=== PATIENT | male | born 1945 | race Caucasian/White ===

== ENCOUNTER 2019-06-27 05:34 | Inpatient (IN) ==
[2019-06-27] MEDS ORDERED: ROPIVACAINE HCL/PF 100 MG, EPINEPHrine 0.2 MG, KETOROLAC TROMETHAMINE 30 MG in NORMAL S... IJ PRN (06:00)
[2019-06-27] MEDS ORDERED: TRANEXAMIC ACID 1,000 MG in NORMAL SALINE 100 ML IV PRN (06:00)
[2019-06-27] MEDS ORDERED: MORPHINE SULFATE 15 MG TABLET.SA PO PRN (06:00)
[2019-06-27] MEDS ORDERED: ceFAZolin SODIUM 1 GM VIAL IV PRN (06:00)
[2019-06-27] MEDS ORDERED: ceFAZolin SODIUM 1 GM VIAL ONE (07:12)
[2019-06-27] MEDS ORDERED: ISOPROPYL ALCOHOL 480 APPL BTL MC ONE (07:12)
--- NOTE | 2019-06-27 07:22 | ANES ---
Anesthesia Pre Procedure Eval Vitals/Labs: Last Vital Signs Temp 36.8 C 06/27/19 06:34 Pulse 73 06/27/19 06:34 Resp 18 06/27/19 06:34 BP 179/88 H 06/27/19 06:34 Pulse Ox 97 06/27/19 06:34 HOME MEDICATIONS budesonide-formoterol HFA 160 mcg-4.5 mcg/actuation aerosol inhaler 2 inh IH BID 05/06/18 [Last Taken Unknown] losartan 100 mg tablet 100 mg PO DAILY 05/06/18 [Last Taken Unknown] tizanidine 4 mg capsule 4 mg PO HS 05/06/18 [Last Taken Unknown] albuterol sulfate 90 mcg/actuation aerosol inhaler 2 inh IH .q 4-6 hours PRN g 04/14/19 [Last Taken Unknown] hydrocodone 5 mg-acetaminophen 325 mg tablet 1 tab PO Q12H PRN #60 tab 06/02/19 [Last Taken Unknown] amLODIPine BESYLATE [Norvasc] 1 tab PO DAILY 06/27/19 [Last Taken Unknown] Allergies/Adverse Reactions: Allergies Allergy/AdvReac Type Severity Reaction Status Date / Time No Known Allergies Allergy Verified 06/27/19 06:55 - Planned Procedure Planned Procedure: Revision Right Total Knee Tibial Component Medication List Reviewed:: Yes Allergies Verified: Yes Medical History (Last Reviewed 06/27/19 @ 07:16 by Lyndon Stahl CRNA) Knee pain, right (Acute) Onset Date: Unknown COPD (chronic obstructive pulmonary disease) Onset Date: Unknown Hypertension Onset Date: Unknown Osteoarthritis of knees, bilateral Onset Date: Unknown Wrist fracture, bilateral Onset Date: Unknown Surgical History (Last Reviewed 06/27/19 @ 07:16 by Lyndon Stahl CRNA) History of arthroplasty of right knee (Chronic) Onset Date: Unknown revision Dr. Fields 10/2017, Андрей approx. 2010 H/O colonoscopy Onset Date: Unknown History of arthroplasty of left knee Onset Date: Unknown approximately. 2001 DR. Vega Status post tonsillectomy Onset Date: Unknown Family History (Last Reviewed 06/27/19 @ 07:16 by Lyndon Stahl CRNA) Mother Medical history unknown Father Medical history unknown - Family Anesthesia History Family History:: no untoward family reactions to anesthesia, no familial bleeding tendencies, no family history of clotting disorders, no family history of premature - Airway/Neck/Teeth Within Normal Limits:: Yes Denture Type: Full upper, Full lower Mallampatti Score: 3 Thyromental (T-M) distance: > 6 cm Mandibulo Hyoid distance: > 3 cm - Respiratory Respiratory History: COPD Respiratory Physical: lungs clear Smoking Status: Former smoker Discussed smoking cessation including day of surgery: No Sleep Apnea currently treated: No Sleep Apnea by current assessment: No Discussed Risks/Treatment of JILLIAN: No - Cardiovascular Tolerate Activity: Fair Heart Sounds: S1 & S2, Regular - Gastrointestinal NPO since: mn - Anesthesia Assessment and Plan ASA Class: PS, III Anesthesia Type Plan: Block - Ultrasound guided adductor canal nerve block for postop analgesia, Spinal
[2019-06-27] MEDS ORDERED: ONDANSETRON HCL/PF 2 MG/ML VIAL ONE (07:24)
[2019-06-27] MEDS ORDERED: fentaNYL CITRATE/PF 50 MCG/ML AMPUL ONE (07:24)
[2019-06-27] MEDS ORDERED: LIDOCAINE HCL 20 ML VIAL ONE (07:24)
[2019-06-27] MEDS ORDERED: PROPOFOL VIAL IV ONE (07:25)
[2019-06-27] MEDS ORDERED: BUPIVACAINE HCL/EPINEPHRINE 50 ML VIAL ONE (07:25)
[2019-06-27] MEDS: RINGER'S SOLUTION,LACTATED 1,000 ML IV PRN ×2 (07:27→08:48)
[2019-06-27] MEDS ORDERED: MAGNESIUM HYDROXIDE 30 ML UDC PO PRN (10:39)
[2019-06-27] MEDS ORDERED: ACETAMINOPHEN 500 MG TABLET PO PRN (10:39)
[2019-06-27] MEDS ORDERED: ZOLPIDEM TARTRATE 5 MG TABLET PO PRN (10:39)
[2019-06-27] MEDS ORDERED: MAG HYDROX/ALUMINUM HYD/SIMETH 30 ML UDC PO PRN (10:39)
[2019-06-27] MEDS ORDERED: diphenhydrAMINE HCL 50 MG/ML VIAL IV PRN (10:39)
[2019-06-27] MEDS ORDERED: ONDANSETRON HCL/PF 2 MG/ML VIAL IV PRN (10:39)
[2019-06-27] MEDS ORDERED: MORPHINE SULFATE 2 MG/ML DISP.SYRIN IV PRN (10:39)
[2019-06-27] MEDS ORDERED: DEXTROSE 5%-LACTATED RINGERS 1,000 ML IV PRN (10:39)
[2019-06-27] MEDS ORDERED: ALBUTEROL SULFATE 2.5 MG/0.5 ML VIAL.NEB IH PRN (10:41)
--- NOTE | 2019-06-27 10:51 | ANES ---
Post Anesthesia Discharge - Transfer of Care Transfer of Care handoff given to nurse: Yes - Discharge from PACU Discharge from PACU when meets criteria: Yes - Discharge to ASU Discharge to ASU-no complications/pt stable: Yes
--- NOTE | 2019-06-27 10:51 | OR ---
Operative Report - Dictated Report Narrative: DATE OF PROCEDURE: 06/27/2019 PHYSICIAN: Pastor Trotter MD Co-surgeon: Dajuan Alfaro MD SENIOR CARE SPECIALIST: Bobby England MD (provided an educated set of skilled hands that consisted with transfer, positioning, prepping, draping, traction, manipulation, irrigation, placement of implants, placement of instruments, closure of wounds, application of dressings, all of which could not be performed by the available surgical crew). 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 ANESTHESIA: Spinal plus regional plus periarticular local. ESTIMATED BLOOD LOSS: Minimal TOURNIQUET TIME: 122 minutes at 325 mmHg. SPECIMENS: Implants for disposal, tissue for acute inflammation, culture x1. COMPLICATIONS: None. RETAINED IMPLANTS: DePuy Attune size 4 revision tibial baseplate rotating platform, revision tibial sleeve Porocoat fully coated 29 mm, revision press-fit stem 12 mm x 110 mm, attune revision tibial augments medial 5 mm, CRS revision rotating platform insert size 5 x 20 mm crosslinked polyethylene. INDICATIONS FOR PROCEDURE: Mr. Ayoub is a 74-year-old gentleman who underwent a revision of the right total knee arthroplasty in the past at an outside facility. He had what appeared to be loosening with change in alignment and lysis around the tibial component and a bone scan that was concerning for aseptic loosening. He had an aspirate, which was negative for infection and had x-rays that showed signs of implant loosening; as well as progression of x-rays with the medial joint line collapsing and the tip of the stem impinging on the tibial bone resulting in increased signal on bone scan. Options for treatment were discussed including bracing, observation, and surgical revision. She wished to proceed with revision. The risks, benefits, and alternatives were discussed in clinic. The risk of , blood clots, bleeding, infection, nerve/tendon/blood vessel injury, malposition of implants, persistent pain, failure of implants, loosening, stiffness, need for additional procedures, and she wished to proceed. Consent was obtained in the clinic. PROCEDURE: After marking the correct extremity in the preoperative holding area, the patient was taken to the operating room. A timeout was performed. IV antibiotics consisting of Ancef was administered prior to procedure. A regional followed by spinal anesthetic was induced at my request by anesthesia. A Sotelo catheter was placed and a bump was placed under the right buttock. A well- padded tourniquet was applied to the right thigh. Right leg was then prepped and draped in standard sterile fashion. His range of motion was 0 of recurvatum to 115 of flexion. After prepping and draping the leg in standard sterile fashion, exsanguinating the extremity and inflating the tourniquet to 325 mmHg, a previous anterior incision was excised over a length of 21 cm. Sharp dissection was carried through the skin. There were no retained nonabsorbable sutures. The medial retinaculum was marked out and a paramedial arthrotomy was made. There was notable effusion, but no gross signs of purulence or infectious appearing tissues. A partial synovectomy was performed. The scar tissue was excised. The gutters were cleaned, and the previous polyethylene was removed. A series of osteotomes and saw was utilized in order to free the tissue to best of our abilities of the tibia. There was a large soft tissue surrounded cement mantle on the medial side. The tibia was then removed with the sleeve in place which showed minimal ingrowth. The implants revealed no signs of significant wear or damage. We then proceeded to prepare the tibia. The entry reamer up to a size 12 tibial reamer was utilized in order to repair the tibial canal. An entry reamer for the implant as well as a 29mm broach was utilized which gave good stability with good fill of the proximal tibial metaphysis. An attempt was made to place a 37 mm sleeve however due to the size of his proximal tibia and the noted sclerotic bone and the need to impact this down to the level to provide a stable platform it was felt that this would be too large for his anatomy and thus it was elected to utilize a 29 mm sleeve. The proximal tibia was then cleaned and cut in order to provide a flat surface. There was a step cut on the medial side due to the noted medial collapse. The trial tray size 4 was then impacted with the trial sleeve and this was secured with a punch. A series of inserts were utilized up to a size 20, which gave good stability in flexion and was able to reach maximal extension without hyperextension, stable to varus and valgus stressing as well as drawer. The patella tracked appropriately and overall, it was felt these were the appropriate implants. The implants were removed. The tissue was thoroughly irrigated with pulsatile saline irrigation. Prior to this, the tissue was sent to pathology for acute inflammation, was noted to have less than 5 neutrophils per high-powered field, and culture was also obtained and sent to pathology. Once the bone was thoroughly irrigated and dried, a periarticular joint injection of ropivacaine, Toradol, and epinephrine was placed. The cement was vacuum mixed per fittings finisher's instructions. The implants were assembled on the back table, and cement was placed on the appropriate surfaces, avoiding any cement on the ingrown surface or the stems, and the implants were then impacted. Once the cement was fully cured, the extruded cement was removed. The final polyethylene insert was placed. The knee was again placed through range of motion and was a ble to reach full extension, flexion 120 degrees with appropriate tracking of the patella, and no instability. A drain was placed exiting superolaterally. The tourniquet was deflated. Hemostasis was obtained. Capsule was closed with interrupted #1 Vicryl. The deep tissues with 0 Vicryl, subcutaneous tissue with 3-0 Vicryl and 3-0 Monocryl, and the skin with addy. Xeroform, 4 x 4s, Sof-Rol and a full leg Neil was applied and the patient was awoken and transferred to postanesthesia care unit in stable condition. All sponge, needle, and instrument counts were correct prior to closing the wounds.
--- NOTE | 2019-06-27 10:53 | ANES ---
Anesthesia Procedure Note Procedure Note: ANESTHESIA PROCEDURE NOTE Date of Procedure: 06/27/2019. Time of procedure: 734. Performed by: Lyndon Stahl CRNA Automation Sales Manager: None. 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 Post procedure diagnosis: Same. Procedure: Right ultrasound guided adductor canal block for postoperative analgesia. Indications: The patient is a 74-year-old male, requesting right ultrasound- guided abductor canal nerve block for postoperative analgesia related to re vision right total knee arthroplasty. Findings: See below. Details of the procedure: The tissue over the intended target site was cleansed with ChloraPrepand draped in a sterile fashion. 2 ml Lidocaine 1 % was infiltrated to the skin and subcutaneous tissue at the intended target site. Under sterile technique and ultrasound guidance a 20-gauge block needle was inserted through the right sartorius muscle to the saphenous nerve just anterior and medial to the superficial femoral artery and vein. 15 mL's of 0.5% bupivacaine was injected after negative aspiration for blood. Needle tip and spread of local anesthetic surrounding the saphenous nerve was observed throughout the injection with real time ultrasound visualization. The needle was then removed intact. No complications were noted. The images were retained in the Hospital medical database. EBL: Minimal. Fluids: N/A. Specimen: N/A. Post procedure condition: The patient tolerated the procedure well. No complications were noted. Thank you for this consultation. Lyndon Stahl CRNA
[2019-06-27] MEDS ORDERED: MORPHINE SULFATE 4 MG/ML SYRG ONE (11:07)
--- NOTE | 2019-06-27 11:07 | ANES ---
Post Anesthesia Assessment - Vital Signs Vitals: Last Vital Signs Temp 36.8 C 06/27/19 11:04 Pulse 67 06/27/19 11:04 Resp 14 06/27/19 11:04 BP 137/66 06/27/19 11:04 Pulse Ox 96 06/27/19 11:04 Airway Patency: Normal - Mental Status Level Of Consciousness: Awake - Pain Level Pain Score: 0 - N/V Assessment Nausea/Vomiting Presence: None Dehydration:: No
[2019-06-27] MEDS: KETOROLAC TROMETHAMINE 15 MG/ML VIAL IV SCH ×2 (11:56→17:23)
[2019-06-27] MEDS: ceFAZolin SODIUM 1 GM in DEXTROSE 5 % IN WATER 50 ML IV SCH ×4 (12:06→18:50)
[2019-06-27] MEDS: oxyCODONE HCL/ACETAMINOPHEN 1 TAB TABLET PO PRN ×2 (13:32→18:48)
[2019-06-27] MEDS: FLUTICASONE PROPION/SALMETEROL 14 PUFF DISK.W.DEV IH SCH (20:45)
[2019-06-27] MEDS: MORPHINE SULFATE 15 MG TABLET.SA PO SCH (20:46)
[2019-06-27] MEDS ORDERED: tiZANidine HCL 4 MG TABLET PO SCH (21:00)
[2019-06-27] MEDS ORDERED: SENNOSIDES/DOCUSATE SODIUM 1 TAB TABLET PO SCH (21:00)
[2019-06-28] MEDS: ceFAZolin SODIUM 1 GM in DEXTROSE 5 % IN WATER 50 ML IV SCH ×2 (00:06)
[2019-06-28] MEDS: KETOROLAC TROMETHAMINE 15 MG/ML VIAL IV SCH ×3 (00:08→10:48)
[2019-06-28] MEDS: oxyCODONE HCL/ACETAMINOPHEN 1 TAB TABLET PO PRN (00:16)
[2019-06-28 06:28] LABS: Hematocrit 26.9 % (42.0-52.0); Hemoglobin 9.1 gm/dL (13.5-18.0); Mean Cell Volume 96.8 fl (78-100); Mean Corpuscular Hemoglobin 32.7 pg (27-31); Mean Corpuscular Hgb Conc 33.8 g/dl (32-36); Mean Platelet Volume 9.2 fl (8-11.3); Platelet Count 325 K/mm3 (150-450); Red Blood Count 2.78 M/mm3 (4.7-6.0); Red Cell Distribution Width 12.8 % (11.5-14.0); White Blood Count 7.3 K/mm3 (4.0-10.5)
[2019-06-28 06:38] LABS: Anion Gap 13.1 mmol/L (6.8-13.8); BUN/Creatinine Ratio 13.8 (9.0-21.6); Calcium * 8.5 mg/dL (7.9-10.9); Carbon Dioxide 24.2 mmol/L (24-32.6); Estimated Creat Clear 36.4; Potassium 4.3 mmol/L (3.4-4.6)
[2019-06-28] MEDS: MORPHINE SULFATE 15 MG TABLET.SA PO SCH (08:38)
[2019-06-28] MEDS: FLUTICASONE PROPION/SALMETEROL 14 PUFF DISK.W.DEV IH SCH (08:39)
[2019-06-28] MEDS ORDERED: amLODIPine BESYLATE 5 MG TABLET PO SCH (09:00)
[2019-06-28] MEDS ORDERED: LOSARTAN POTASSIUM 50 MG TABLET PO SCH (09:00)
[2019-06-28] MEDS ORDERED: ENOXAPARIN SODIUM 40 MG/0.4 ML SYRG SC SCH (09:39)
--- NOTE | 2019-06-28 13:35 | DS ---
(1) Chronic knee pain after total replacement of right knee joint Problem: Chronic (2) Status post revision of total replacement of right knee Problem: Acute (3) Acute blood loss anemia Problem: Acute (4) Chronic kidney insufficiency Problem: Chronic (5) History of arthroplasty of right knee Problem: Chronic (6) Hypertension Problem: Chronic (7) COPD (chronic obstructive pulmonary disease) Problem: Chronic Date of Discharge:: 06/28/19 Hospital Course: Mr. Ayoub was admitted to the floor after undergoing revision right total knee tibial component arthroplasty. Tolerated this well. Was admitted to the floor postoperatively for 24 hours of IV antibiotics, pain control, medical comanagement, and occupational and physical therapy. OT and PT were consulted to assist with activities of daily living and ambulation. Was made weightbeari ng as tolerated with range of motion as tolerated. Pain was initially controlled with IV regimen. This was transitioned to oral once tolerating a by mouth intake. Was resumed on home diet and medications. Had a Sotelo catheter inserted and the operating room which was discontinued on postoperative day 1. A drain was placed intraoperatively into the knee which was discontinued on postoperative day 1. Lovenox SCD and ANTELMO hose were utilized for DVT prophylaxis. Vital signs remained stable to the hospital course. Serial labs were obtained which showed a final hemoglobin of 9.1 grams down from 12.4 g preoperatively. This was asymptomatic and will follow clinically. BMP was reviewed and was stabl with a creatinine of e 1.59 down from 1.66 preoperatively. Physical examination throughout the hospital course showed an extremity that had sensation that was intact to light touch, palpable pulses, a benign wound, motor intact to the toes, ankle, and knee. Knee range of motion was approximately 5 degrees to 60 degrees. Once an oral pain regimen was tolerated and physical therapy goals were met, it was felt that they were stable for discharge to home. Instructions: Continue with weightbearing as tolerated and range of motion as tolerated. It is OK to shower on the wound if it is not draining. If you note any drainage or for comfort you can cover with dry gauze and tape. Change every 2-3 days as needed. Continue with physical therapy. Resume home diet. Report any fever over 101.5 Fahrenheit, uncontrolled pain, increased drainage, foul odor of drainage, new or increased calf pain or shortness of breath, or any other significant complaints. A 325mg dialy aspirin will be started after finishing anticoagulation if not allergic. Continue with ANTELMO hose on the operative e xtremity until instructed otherwise. No driving until instructed otherwise. Follow up in approximately 10-14 days. Procedures Performed: see notes below List Procedures: Revision tibial component right total knee Results and Findings: Pending Mircobiology Results 06/27/19 10:15 Knee - Right Miscellaneous Culture - Preliminary No Growth Lab Pending Results 06/28/19 06:23: WBC 7.3, RBC 2.78 L, Hgb 9.1 L, Hct 26.9 L, MCV 96.8, MCH 32.7 H, MCHC 33.8, RDW 12.8, Plt Count 325, MPV 9.2 06/28/19 06:23: Sodium 133, Plasma Sodium 133, Potassium 4.3, Chloride 100, Carbon Dioxide 24.2, Anion Gap 13.1, BUN 22, Creatinine 1.59 H, Est GFR (Non-Af Amer) 45 L, BUN/Creatinine Ratio 13.8, Random Glucose 102, Calcium 8.5 Discharge Location: Home Disposition: Home self-care Condition: Good Discharge Activity: Activity as tolerated, Weight bearing, Other - With wheeled walker Discharge Diet: Low salt Referrals: Jake Johnson MD [Primary Care Provider] - Additional Patient Instructions (free text): Physical Therapy at [facility] in [place], [place] on June 30, at 9:00am. Please fax PT order and demographics to [phone]. Follow up Orthopedic appointment on ThursdayJuly 18 at 10:30am. Prescriptions (Any new or edited meds): Enoxaparin Sodium [Lovenox] 40 mg SC Q24H #7 disp.syrin Transmission Status: Pending to [facility] Morphine Sulfate [Ms Contin] 15 mg PO Q12H #14 tablet.sa Transmission Status: Sent to [facility] oxyCODONE HCL/ACETAMINOPHEN [Percocet 5 MG/325 MG] 2 tab PO Q4H PRN #56 tab PRN Reason: Moderate Pain (Pain Scale 4-6) Transmission Status: Sent to [facility] Promethazine HCl [Phenergan (Promethazine)] 25 mg PO Q4H PRN #30 tab PRN Reason: nausea/vomiting Transmission Status: Pending to [facility] Complete Home Medications List: Complete Home Medication List: budesonide-formoterol HFA 160 mcg-4.5 mcg/actuation aerosol inhaler 2 inh IH BID 05/06/18 losartan 100 mg tablet 100 mg PO DAILY 05/06/18 tizanidine 4 mg capsule 4 mg PO HS 05/06/18 albuterol sulfate 90 mcg/actuation aerosol inhaler 2 inh IH .q 4-6 hours PRN g 04/14/19 amLODIPine BESYLATE [Norvasc] 1 tab PO DAILY 06/27/19 Enoxaparin Sodium [Lovenox] 40 mg SC Q24H #7 disp.syrin 06/28/19 Morphine Sulfate [Ms Contin] 15 mg PO Q12H #14 tablet.sa 06/28/19 Promethazine HCl [Phenergan (Promethazine)] 25 mg PO Q4H PRN #30 tab 06/28/19 oxyCODONE HCL/ACETAMINOPHEN [Percocet 5 MG/325 MG] 2 tab PO Q4H PRN #56 tab 06/28/19 Amb Orders for Discharge: PT Evaluation and Treatment* [facility] Location: Rehabilitation Services
[2019-06-28 14:07] VITALS: BP 159/75
== END 2019-06-28 15:20 | disposition home or self-care (01) | DRG 467 ==
LOC: MS 05:34
PROVIDERS: ADMIT Orthopaedic Surgery; ATTEND Orthopaedic Surgery
CPT/HCPCS: 36415; 73560; 80048; 85027; 87070; 87075; 88305; 88331; 97110; 97116; 97161; 97165; 97535; J2405